=== PATIENT | male | born 1940 | race Hispanic/Latino ===

== ENCOUNTER 2020-09-28 15:16 | Emergency (ER) | payer MEDICARE ==
--- NOTE | 2020-09-28 17:01 | Emergency Department Report ---
ED General Adult HPI - General Chief complaint: Urogenital-Male Stated complaint: LEAKING CATHETER Time Seen by Provider: 09/28/20 15:41 Source: patient Mode of arrival: Ambulatory Limitations: No Limitations - History of Present Illness Initial comments: 80-year-old male presents to ED due to Adler catheter bag leaking urine. Onset earlier today. Patient is having no issues with draining urine from the bladder. -: This afternoon Severity scale (0 -10): 0 Quality: other (painless) Consistency: constant Improves with: none Worsens with: cold therapy Associated Symptoms: denies other symptoms Treatments Prior to Arrival: none - Related Data Previous Rx's Medication Instructions Recorded Last Taken Type Cyclobenzaprine [Flexeril 10 MG 10 mg PO Q8H PRN #20 tablet 08/15/14 Unknown Rx TAB] HYDROcodone/APAP 5-325 [[place] 1 each PO Q6HR PRN #12 tablet 08/15/14 Unknown Rx 5-325 mg TAB] Ibuprofen [Motrin 600 MG tab] 600 mg PO Q8H PRN #20 tablet 08/15/14 Unknown Rx Allergies Allergy/AdvReac Type Severity Reaction Status Date / Time No Known Allergies Allergy Verified 08/15/14 14:07 ED Review of Systems ROS: Stated complaint: LEAKING CATHETER Other details as noted in HPI Comment: All other systems reviewed and negative Gastrointestinal: denies: abdominal pain Genitourinary: as per HPI ED Past Medical Hx - Past Medical History Previous Medical History?: Yes Additional medical history: Dysuria - Surgical History Hx Appendectomy: Yes Additional Surgical History: Lump removed from head and under arm - Social History Smoking Status: Never Smoker Substance Use Type: None - Medications Home Medications: Home Medications Medication Instructions Recorded Confirmed Last Taken Type Cyclobenzaprine [Flexeril 10 MG 10 mg PO Q8H PRN #20 tablet 08/15/14 Unknown Rx TAB] HYDROcodone/APAP 5-325 [[place] 1 each PO Q6HR PRN #12 tablet 08/15/14 Unknown Rx 5-325 mg TAB] Ibuprofen [Motrin 600 MG tab] 600 mg PO Q8H PRN #20 tablet 08/15/14 Unknown Rx ED Physical Exam - General Limitations: No Limitations General appearance: alert, in no apparent distress - Head Head exam: Present: atraumatic, normocephalic - Eye Eye exam: Present: normal appearance, EOMI - ENT ENT exam: Present: mucous membranes moist - Neck Neck exam: Present: normal inspection - Respiratory Respiratory exam: Present: normal lung sounds bilaterally. Absent: respiratory distress - Cardiovascular Cardiovascular Exam: Present: normal rhythm, tachycardia - GI/Abdominal GI/Abdominal exam: Present: soft, other (Adler catheter in place). Absent: distended, tenderness - Extremities Exam Extremities exam: Present: normal inspection - Neurological Exam Neurological exam: Present: alert, oriented X3 - Psychiatric Psychiatric exam: Present: normal affect, normal mood - Skin Skin exam: Present: warm, dry, intact, normal color ED Course Vital Signs 09/28/20 09/28/20 09/28/20 15:31 16:01 16:55 Temperature 97.8 F Pulse Rate 120 H 105 H 92 H Respiratory 95 H 17 16 Rate Blood Pressure 193/123 Blood Pressure 179/105 [Left] O2 Sat by Pulse 95 95 Oximetry 09/28/20 09/28/20 17:00 17:19 Temperature Pulse Rate 94 H 91 H Respiratory 19 15 Rate Blood Pressure Blood Pressure 162/102 [Left] O2 Sat by Pulse Oximetry ED Medical Decision Making - EKG Data -: EKG Interpreted by Sc EKG shows normal: sinus rhythm, ST-T waves Rate: tachycardia (rate 104) - EKG Data Interpretation: no acute changes, other (LBBB) - Medical Decision Making BP and HR elevated upon arrival, however, pt states he has "white coat syndrome." Also states he has not taken his BP meds today. EKG was obtained secondary to his tachycardia. Shows LBBB, no acute changes. Pt has no cardiac complaints. BP and HR have both improved. Adler catheter bag changed out. Pt will be discharged at this time. - Differential Diagnosis Adler catheter problem Critical care attestation.: If time is entered above; I have spent that time in minutes in the direct care of this critically ill patient, excluding procedure time. ED Disposition Clinical Impression: Adler catheter problem Disposition: TO HOME OR SELFCARE Is pt being admited?: No Condition: Stable Time of Disposition: 16:58
[2020-09-28 17:24] VITALS: BP 162/102
== END 2020-09-28 17:20 | disposition home or self-care (01) ==
LOC: ED 15:16
DX: T83.098A Other mechanical complication of other urinary catheter, initial encounter (principal); Z98.890 Other specified postprocedural states; Z79.1 Long term (current) use of non-steroidal anti-inflammatories (NSAID); Z79.899 Other long term (current) drug therapy; Y92.89 Other specified places as the place of occurrence of the external cause
CPT/HCPCS: 93005

== ENCOUNTER 2020-12-28 00:47 | Emergency (ER) | payer MEDICARE ==
[2020-12-28] MEDS ORDERED: SODIUM CHLORIDE 0.9% IRR 500 ML BOTTLE IR ONE (02:12)
--- NOTE | 2020-12-28 02:13 | Emergency Department Report ---
ED General Adult HPI - General Chief complaint: Urogenital-Male Stated complaint: I feel like I have to pee PUI?: No Time Seen by Provider: 12/28/20 01:13 Source: patient, EMS ( EMS documentation not available at time of chart dictation ), RN notes reviewed, old records reviewed Mode of arrival: Ambulatory Limitations: No Limitations - History of Present Illness Initial comments: The patient was evaluated in the emergency department for symptoms described in the history of present illness. He/she was evaluated in the context of the global COVID-19 pandemic, which necessitated consideration that the patient might be at risk for infection with the virus that causes COVID-19. Institutional protocols and algorithms that pertain to the evaluation of patients at risk for COVID-19 are in a state of rapid change based on information released by regulatory bodies including the CDC and federal and state organizations. These policies and algorithms were followed during the patient's care in the emergency department. Please note that these policies, procedures and recommendations changed on a rapid basis. Urology: Dr. Ganesh Witt; [facility]. The patient is a pleasant 80-year-old gentleman with an indwelling Adler catheter, who presents to the ER today with a complaint of urinary distention, and decreased urine output from his indwelling 20 [place] Adler catheter. He was feeling fine up until 2 hours prior to arrival to this emergency room. He endorses that he has been in his usual state of health. He reports that he had a Adler catheter recently placed at [facility] a few days ago. He denies new medications. He denies all other symptomatology. After irrigation of his Adler catheter by nursing team, 800 cc of clear yellow urine were returned, and patient endorsed complete resolution of symptoms. He states that he is now back to his baseline, and denies complaints, and would like to be discharged. -: Sudden, hour(s) Severity scale (0 -10): 3 Consistency: now resolved Improves with: other (Nursing irrigation) Worsens with: none Associated Symptoms: denies other symptoms - Related Data Previous Rx's Medication Instructions Recorded Last Taken Type Cyclobenzaprine [Flexeril 10 MG 10 mg PO Q8H PRN #20 tablet 08/15/14 Unknown Rx TAB] HYDROcodone/APAP 5-325 [[place] 1 each PO Q6HR PRN #12 tablet 08/15/14 Unknown Rx 5-325 mg TAB] Ibuprofen [Motrin 600 MG tab] 600 mg PO Q8H PRN #20 tablet 08/15/14 Unknown Rx Allergies Allergy/AdvReac Type Severity Reaction Status Date / Time No Known Allergies Allergy Verified 08/15/14 14:07 ED Review of Systems ROS: Stated complaint: DYSURIA Other details as noted in HPI Constitutional: denies: fever Cardiovascular: denies: chest pain Gastrointestinal: abdominal pain Genitourinary: other (Urinary retention). denies: urgency, dysuria, frequency, hematuria, testicular pain, testicular mass Neurological: denies: weakness ED Past Medical Hx - Past Medical History Previous Medical History?: Yes Hx Hypertension: Yes Additional medical history: Dysuria - Surgical History Hx Appendectomy: Yes Additional Surgical History: Lump removed from head and under arm. Prostate resume November 20, 2020 - Social History Smoking Status: Former Smoker - Medications Home Medications: Home Medications Medication Instructions Recorded Confirmed Last Taken Type Cyclobenzaprine [Flexeril 10 MG 10 mg PO Q8H PRN #20 tablet 08/15/14 Unknown Rx TAB] HYDROcodone/APAP 5-325 [[place] 1 each PO Q6HR PRN #12 tablet 08/15/14 Unknown Rx 5-325 mg TAB] Ibuprofen [Motrin 600 MG tab] 600 mg PO Q8H PRN #20 tablet 08/15/14 Unknown Rx ED Physical Exam - General Limitations: No Limitations General appearance: alert, anxious, in distress - Head Head exam: Present: atraumatic, normocephalic - Eye Eye exam: Present: normal appearance, EOMI - ENT ENT exam: Present: normal exam, normal orophraynx, mucous membranes moist, normal external ear exam - Neck Neck exam: Present: normal inspection, full ROM. Absent: tenderness, meningismus - Respiratory Respiratory exam: Present: normal lung sounds bilaterally. Absent: respiratory distress, wheezes, rales, rhonchi, stridor, decreased breath sounds, prolonged expiratory - Cardiovascular Cardiovascular Exam: Present: regular rate, normal rhythm, normal heart sounds. Absent: bradycardia, tachycardia, irregular rhythm, systolic murmur, diastolic murmur, rubs, gallop - GI/Abdominal GI/Abdominal exam: Present: soft, distended (Distended bladder). Absent: tenderness, guarding, rebound, rigid, pulsatile mass - Rectal Rectal exam: Present: normal inspection - exam: Present: normal inspection, other (Adler catheter in place. Draining clear yellow urine. Chaperoned by nurse Hamida Zepeda). Absent: testicular tenderness - Extremities Exam Extremities exam: Present: normal inspection, full ROM, other (2+ pulses noted in the bilateral upper and lower extremities. There is no palpable cord. negative Homans sign. Muscular compartments are soft. The pelvis is stable.). Absent: pedal edema, calf tenderness - Back Exam Back exam: Present: normal inspection, full ROM. Absent: tenderness, CVA tenderness (R), CVA tenderness (L), paraspinal tenderness, vertebral tenderness - Neurological Exam Neurological exam: Present: alert, oriented X3, normal gait, other (No facial droop. Tongue midline. Extraocular movements intact bilaterally. Facial sensation intact to light touch in V1, V2, V3 distribution bilaterally. 5 and a 5 strength in 4 extremities. Sensation intact to light touch in 4 extremities.). Absent: motor sensory deficit - Psychiatric Psychiatric exam: Present: normal affect, normal mood - Skin Skin exam: Present: warm, dry, intact, normal color. Absent: rash ED Course Vital Signs 12/28/20 12/28/20 12/28/20 01:05 01:30 01:45 Temperature 98.3 F Pulse Rate 103 H 91 H 79 Respiratory 20 18 27 H Rate Blood Pressure 152/82 154/108 O2 Sat by Pulse 97 95 96 Oximetry 12/28/20 02:01 Temperature Pulse Rate 93 H Respiratory 18 Rate Blood Pressure 154/89 O2 Sat by Pulse 96 Oximetry ED Medical Decision Making - Lab Data Vital Signs 12/28/20 12/28/20 12/28/20 01:05 01:30 01:45 Temperature 98.3 F Pulse Rate 103 H 91 H 79 Respiratory 20 18 27 H Rate Blood Pressure 152/82 154/108 O2 Sat by Pulse 97 95 96 Oximetry 12/28/20 02:01 Temperature Pulse Rate 93 H Respiratory 18 Rate Blood Pressure 154/89 O2 Sat by Pulse 96 Oximetry - Medical Decision Making Differential diagnosis, including but not limited to: Encounter for Adler catheter malfunction, Adler catheter blockage Assessment and plan: 80-year-old gentleman, with indwelling three-way Adler catheter, 20 [place], who presents with poor drainage from catheter, now resolved, after irrigation. Adler catheter draining well, clear yellow urine, patient endorses that he feels like he is back to his baseline. He has follow- up with his urologist in a few weeks. He endorses readiness for discharge. Return precautions are reviewed. Critical care attestation.: If time is entered above; I have spent that time in minutes in the direct care of this critically ill patient, excluding procedure time. ED Disposition Clinical Impression: Adler catheter in place, History of urinary retention Disposition: TO HOME OR SELFCARE Is pt being admited?: No Does the pt Need Aspirin: No Condition: Good Instructions: Acute Urinary Retention, Male, Indwelling Urinary Catheter Care, Adult Additional Instructions: Please continue current outpatient medications. Please follow-up with your outpatient neurologist or primary care doctor for Adler catheter care and maintenance within the next 5 to 7 days. Please return to the emergency room right away with new pain, worsened pain, migration of pain, projectile vomiting, change in mental status, confusion, inability to tolerate liquid feeds, recurrent urinary obstruction, or any new, worsened or different symptoms not present on the initial ER evaluation Referrals: MARY KAY WITT MD [Staff Physician] - 3-5 Days [facility] [Provider Group] - 3-5 Days
[2020-12-28 03:44] VITALS: BP 145/72
== END 2020-12-28 03:42 | disposition home or self-care (01) ==
LOC: ED 00:47
DX: T83.098A Other mechanical complication of other urinary catheter, initial encounter (principal); I10 Essential (primary) hypertension; Z90.49 Acquired absence of other specified parts of digestive tract; Z87.891 Personal history of nicotine dependence; Z98.890 Other specified postprocedural states; Z79.899 Other long term (current) drug therapy; Y84.6 Urinary catheterization as the cause of abnormal reaction of the patient, or of later complication, without mention of misadventure at the time of the procedure; Y92.89 Other specified places as the place of occurrence of the external cause
CPT/HCPCS: 99283

== ENCOUNTER 2020-12-28 06:32 | Emergency (ER) | payer MEDICARE ==
--- NOTE | 2020-12-28 08:37 | Emergency Department Report ---
ED Male HPI - General Chief complaint: Urogenital-Male Stated complaint: INCOMPLETE FLUSH/URINARY RETENTION Time Seen by Provider: 12/28/20 08:03 Source: patient Mode of arrival: Ambulatory Limitations: No Limitations - History of Present Illness Initial comments: Patient is 80 years old male with history of prostate cancer and frequent urinary retention. Patient is on Adler catheter. Patient presented to the ER for urinary retention. Patient was seen here yesterday and has Adler catheter irrigated and felt better and discharged home. Patient stated that it stopped draining again. Patient denied any nausea or vomiting. No fever or chills. - Related Data Previous Rx's Medication Instructions Recorded Last Taken Type Cyclobenzaprine [Flexeril 10 MG 10 mg PO Q8H PRN #20 tablet 08/15/14 Unknown Rx TAB] HYDROcodone/APAP 5-325 [[place] 1 each PO Q6HR PRN #12 tablet 08/15/14 Unknown Rx 5-325 mg TAB] Ibuprofen [Motrin 600 MG tab] 600 mg PO Q8H PRN #20 tablet 08/15/14 Unknown Rx Allergies Allergy/AdvReac Type Severity Reaction Status Date / Time No Known Allergies Allergy Verified 08/15/14 14:07 ED Review of Systems ROS: Stated complaint: INCOMPLETE FLUSH/URINARY RETENTION Other details as noted in HPI Comment: All other systems reviewed and negative Constitutional: denies: chills, fever Respiratory: denies: cough, shortness of breath, SOB with exertion Cardiovascular: denies: chest pain, palpitations Gastrointestinal: denies: abdominal pain, nausea, vomiting Musculoskeletal: denies: back pain ED Past Medical Hx - Past Medical History Previous Medical History?: Yes Hx Hypertension: Yes Additional medical history: Dysuria - Surgical History Past Surgical History?: Yes Hx Appendectomy: Yes Additional Surgical History: Lump removed from head and under arm. Prostate resume November 20, 2020 - Social History Smoking Status: Former Smoker Substance Use Type: None - Medications Home Medications: Home Medications Medication Instructions Recorded Confirmed Last Taken Type Cyclobenzaprine [Flexeril 10 MG 10 mg PO Q8H PRN #20 tablet 08/15/14 Unknown Rx TAB] HYDROcodone/APAP 5-325 [[place] 1 each PO Q6HR PRN #12 tablet 08/15/14 Unknown Rx 5-325 mg TAB] Ibuprofen [Motrin 600 MG tab] 600 mg PO Q8H PRN #20 tablet 08/15/14 Unknown Rx ED Physical Exam - General Limitations: No Limitations General appearance: alert, in no apparent distress - Head Head exam: Present: atraumatic, normocephalic, normal inspection - Eye Eye exam: Present: normal appearance - Neck Neck exam: Present: normal inspection. Absent: tenderness, meningismus - Respiratory Respiratory exam: Present: normal lung sounds bilaterally - Cardiovascular Cardiovascular Exam: Present: regular rate, normal rhythm, normal heart sounds - GI/Abdominal GI/Abdominal exam: Present: soft, distended. Absent: tenderness, guarding, rebound, rigid, normal bowel sounds - Extremities Exam Extremities exam: Present: normal inspection, full ROM, normal capillary refill. Absent: tenderness - Back Exam Back exam: Present: normal inspection, full ROM. Absent: CVA tenderness (R) - Neurological Exam Neurological exam: Present: alert, oriented X3, CN II-XII intact - Skin Skin exam: Present: warm, intact, normal color ED Course Vital Signs 12/28/20 07:53 Temperature 97.9 F Pulse Rate 85 Respiratory 18 Rate Blood Pressure 205/93 O2 Sat by Pulse 98 Oximetry ED Medical Decision Making - Medical Decision Making Patient is 80 years old male with history of prostate cancer and frequent urinary retention. Patient is on Adler catheter. Patient presented to the ER for urinary retention. Patient was seen here yesterday and has Adler catheter irrigated and felt better and discharged home. Patient stated that it stopped draining again. Patient denied any nausea or vomiting. No fever or chills. Catheter has been replaced. Draining well. Patient stating that he is feeling much better. Patient has an appointment with Dr. Witt in the next 3 days. I advised the patient to keep his appointment and to return to the ER if he develop any new symptoms. Critical care attestation.: If time is entered above; I have spent that time in minutes in the direct care of this critically ill patient, excluding procedure time. ED Disposition Clinical Impression: Acute urinary retention, Malfunction of Adler catheter Disposition: TO HOME OR SELFCARE Is pt being admited?: No Condition: Stable Instructions: Acute Urinary Retention, Male Referrals: MARY KAY WITT MD [Primary Care Provider] - 3-5 Days
[2020-12-28 10:02] VITALS: BP 174/98
== END 2020-12-28 10:02 | disposition home or self-care (01) ==
LOC: ED 06:32
DX: T83.098A Other mechanical complication of other urinary catheter, initial encounter (principal); R33.9 Retention of urine, unspecified; I10 Essential (primary) hypertension; Z90.49 Acquired absence of other specified parts of digestive tract; Z87.891 Personal history of nicotine dependence; Z79.899 Other long term (current) drug therapy; Y84.6 Urinary catheterization as the cause of abnormal reaction of the patient, or of later complication, without mention of misadventure at the time of the procedure; Y92.89 Other specified places as the place of occurrence of the external cause

== ENCOUNTER 2021-01-23 13:32 | Emergency (ER) | payer MEDICARE ==
[2021-01-23 13:48] VITALS: BP 154/69
--- NOTE | 2021-01-23 14:42 | Emergency Department Report ---
<FERN MUIR - Last Filed: 01/23/21 17:22> ED Male HPI - General Chief complaint: Urogenital-Male Stated complaint: UNABLE TO URINE Time Seen by Provider: 01/23/21 14:41 Source: patient Mode of arrival: Ambulatory Limitations: No Limitations - History of Present Illness Initial comments: 80-year-old [place] presents to the emergency room stating he has been unable to urinate since 230 this morning. Patient reports that he has had issues with urinary retention and had to have Adler catheter placed about 7-8 times. Patient reports has a history of prostate cancer and had procedure and since then he has been having trouble with urinary retention. Patient currently follows up with Dr. Witt and next appointment is not until March 02. Patient states he has pelvic distention pelvic pressure. He denies any fever chills no nausea no vomiting. MD Complaint: other (Urinary retention) -: This morning Time: 02:30 Severity scale (0 -10): 7 Quality: aching Consistency: constant Improves with: none Worsens with: none - Related Data Previous Rx's Medication Instructions Recorded Last Taken Type Cyclobenzaprine [Flexeril 10 MG 10 mg PO Q8H PRN #20 tablet 08/15/14 Unknown Rx TAB] HYDROcodone/APAP 5-325 [[place] 1 each PO Q6HR PRN #12 tablet 08/15/14 Unknown Rx 5-325 mg TAB] Ibuprofen [Motrin 600 MG tab] 600 mg PO Q8H PRN #20 tablet 08/15/14 Unknown Rx Ciprofloxacin HCl 500 mg PO BID #10 tablet 01/23/21 Unknown Rx Allergies Allergy/AdvReac Type Severity Reaction Status Date / Time No Known Allergies Allergy Verified 08/15/14 14:07 ED Review of Systems Comment: All other systems reviewed and negative ED Past Medical Hx - Past Medical History Previous Medical History?: Yes Hx Hypertension: Yes Hx Renal Disease: (Unable to urinate 3 different times) Additional medical history: Dysuria - Surgical History Past Surgical History?: Yes Hx Appendectomy: Yes Additional Surgical History: Lump removed from head and under arm. Prostate resume November 20, 2020 - Social History Smoking Status: Former Smoker Substance Use Type: None - Medications Home Medications: Home Medications Medication Instructions Recorded Confirmed Last Taken Type Cyclobenzaprine [Flexeril 10 MG 10 mg PO Q8H PRN #20 tablet 08/15/14 Unknown Rx TAB] HYDROcodone/APAP 5-325 [[place] 1 each PO Q6HR PRN #12 tablet 08/15/14 Unknown Rx 5-325 mg TAB] Ibuprofen [Motrin 600 MG tab] 600 mg PO Q8H PRN #20 tablet 08/15/14 Unknown Rx Ciprofloxacin HCl 500 mg PO BID #10 tablet 01/23/21 Unknown Rx ED Physical Exam - General Limitations: No Limitations General appearance: alert, in no apparent distress - Head Head exam: Present: atraumatic, normocephalic - Eye Eye exam: Present: normal appearance - ENT ENT exam: Present: normal exam, normal external ear exam - Neck Neck exam: Present: normal inspection, full ROM - Respiratory Respiratory exam: Present: normal lung sounds bilaterally. Absent: accessory muscle use - Cardiovascular Cardiovascular Exam: Present: regular rate - GI/Abdominal GI/Abdominal exam: Present: soft, distended, tenderness, normal bowel sounds. Absent: guarding - Extremities Exam Extremities exam: Present: normal inspection - Back Exam Back exam: Present: normal inspection - Neurological Exam Neurological exam: Present: alert, oriented X3 - Psychiatric Psychiatric exam: Present: normal affect, normal mood - Skin Skin exam: Present: warm, dry, intact, normal color. Absent: rash ED Medical Decision Making - Medical Decision Making 80-year-old [place] presents to the emergency room stating he has been unable to urinate since 230 this morning. Patient reports that he has had issues with urinary retention and had to have Adler catheter placed about 7-8 times. Patient reports has a history of prostate cancer and had procedure and since then he has been having trouble with urinary retention. Patient currently follows up with Dr. Witt and next appointment is not until March 02. Patient states he has pelvic distention pelvic pressure. He denies any fever chills no nausea no vomiting. Patient had a Adler catheter placed by ER attending Dr. Camila Mendes. Patient appears to have a urinary tract infection will treat with Cipro 500 mg twice daily for 5 days. Patient is instructed to follow-up with Dr. Witt earlier than March 02. ED Disposition Clinical Impression: Urinary retention, BPH (benign prostatic hyperplasia) UTI (urinary tract infection) Qualifiers: Urinary tract infection type: site unspecified Hematuria presence: without hematuria Qualified Code(s): N39.0 - Urinary tract infection, site not specified Disposition: DC-01 TO HOME OR SELFCARE Is pt being admited?: No Does the pt Need Aspirin: No Condition: Stable Instructions: Acute Urinary Retention, Male, [id number] Additional Instructions: Please follow-up with Dr. Witt sooner than March 02. Complete antibiotics. Increase your fluid intake. Prescriptions: Ciprofloxacin HCl 500 mg PO BID #10 tablet Referrals: MARY KAY WITT MD [Staff Physician] - 3-5 Days <CAMILA MENDES - Last Filed: 01/23/21 17:37> ED Review of Systems ROS: Stated complaint: UNABLE TO URINE Other details as noted in HPI ED Course Vital Signs 01/23/21 13:44 Temperature 98.2 F Pulse Rate 87 Respiratory 18 Rate Blood Pressure 154/69 [Right] O2 Sat by Pulse 96 Oximetry ED Medical Decision Making - Medical Decision Making I evaluated patient. Patient has acute urinary retention which is recurrent. Charge nurse asked me to attempt Adler catheter placement. Patient recently had Adler catheter was removed by Dr. Witt's nurse on Tuesday in the office. He had normal urine flow between Tuesday and today. Patient has BPH. Patient last urinated 2:30 AM this morning. He has bladder discomfort. Severe pain discomfort. During my exam patient denied history of prostate cancer. Procedure note Adler catheter placement Patient gave verbal consent for procedure Indication acute urinary retention Under sterile conditions Betadine preparation, I used lidocaine jelly with Urojet apparatus to provide local anesthesia. I inserted 18 Sin[place] coud tipped catheter. Immediate expression of urine in collection bag. No complications. Patient had immediate relief. Collection bag immediately filled with 700 mL of urine Critical care attestation.: If time is entered above; I have spent that time in minutes in the direct care of this critically ill patient, excluding procedure time. ED Disposition Is pt being admited?: No Does the pt Need Aspirin: No
[2021-01-23 16:46] LABS: Bacteria,Urine 3+ /HPF (Negative); Bilirubin,Urine NEG (Negative); Blood,Urine MOD (Negative); Color,Urine Yellow (Yellow); Mucus,Urine FEW /HPF; Urobilinogen,Urine < 2.0 mg/dL (<2.0)
[2021-01-23 16:47] LABS: WBC,Urine > 182.0 /HPF (0.0-6.0)
[2021-01-23] MEDS ORDERED: LIDOCAINE 2% UROJECT 10 ML JELLY UR ONE (17:00)
[2021-01-24] MEDS ORDERED: LIDOCAINE 2% UROJECT 10 ML JELLY UR ONE (01:32)
== END 2021-01-23 18:05 | disposition home or self-care (01) ==
LOC: ED 13:32
DX: N40.0 Benign prostatic hyperplasia without lower urinary tract symptoms (principal); N39.0 Urinary tract infection, site not specified; R33.9 Retention of urine, unspecified; I10 Essential (primary) hypertension; Z90.49 Acquired absence of other specified parts of digestive tract; Z98.890 Other specified postprocedural states; Z87.891 Personal history of nicotine dependence; Z79.1 Long term (current) use of non-steroidal anti-inflammatories (NSAID); Z79.899 Other long term (current) drug therapy
CPT/HCPCS: 51702; 81001

== ENCOUNTER 2021-01-24 01:16 | Emergency (ER) | payer MEDICARE ==
[~2021-01-24 01:16] MED LIST: LIDOCAINE 2% UROJECT 10 ML JELLY ONE
[2021-01-24] MEDS ORDERED: WATER FOR INJ Sterile (PF) 10 ML ONE (01:48)
[2021-01-24] MEDS ORDERED: SODIUM CHLORIDE 0.9% IRRIG SOLN 2000 ML IR SCH (02:00)
--- NOTE | 2021-01-24 02:31 | Emergency Department Report ---
ED Male HPI - General Chief complaint: Tube Replacement Stated complaint: ABDOMINAL PAIN Time Seen by Provider: 01/24/21 01:22 Source: patient Mode of arrival: Ambulatory Limitations: No Limitations - History of Present Illness Initial comments: Patient is a 80-year-old male with a past medical history of prostate cancer and multiple episodes of urine retention. Patient had a Adler catheter taken out earlier this week. Was then retention and had a catheter placed earlier today. Patient states after he left he feels as though the catheter stopped working. He is now has some suprapubic discomfort. Denies nausea vomiting diarrhea. - Related Data Allergies Allergy/AdvReac Type Severity Reaction Status Date / Time No Known Allergies Allergy Verified 01/24/21 01:42 ED Review of Systems ROS: Stated complaint: ABDOMINAL PAIN Other details as noted in HPI Comment: All other systems reviewed and negative ED Past Medical Hx - Past Medical History Previous Medical History?: No Hx Hypertension: No Hx CVA: No Hx Heart Attack/AMI: No Hx Congestive Heart Failure: No Hx Diabetes: No Hx Deep Vein Thrombosis: No Hx Pulmonary Embolism: No Hx GERD: No Hx Liver Disease: No Hx Renal Disease: No Hx of Cancer: No Hx Sickle Cell Disease: No Hx Arthritis: No Hx Headaches / Migraines: No Hx Seizures: No Hx Kidney Stones: No Hx Psychiatric Treatment: No Hx Asthma: No Hx COPD: No Hx Tuberculosis: No Hx Dementia: No Hx HIV: No Additional medical history: enlarged prostate - Surgical History Past Surgical History?: Yes ED Physical Exam - General Limitations: No Limitations General appearance: alert, in no apparent distress - Head Head exam: Present: atraumatic, normocephalic - Eye Eye exam: Present: normal appearance - ENT ENT exam: Present: mucous membranes moist - Neck Neck exam: Present: normal inspection - Respiratory Respiratory exam: Present: normal lung sounds bilaterally. Absent: respiratory distress - Cardiovascular Cardiovascular Exam: Present: regular rate, normal rhythm. Absent: systolic murmur, diastolic murmur, rubs, gallop - GI/Abdominal GI/Abdominal exam: Present: soft, distended, tenderness (suprpubic), normal bowel sounds. Absent: guarding, rebound, rigid - Rectal Rectal exam: Present: deferred - Extremities Exam Extremities exam: Present: normal inspection - Back Exam Back exam: Present: normal inspection - Neurological Exam Neurological exam: Present: alert, oriented X3 - Psychiatric Psychiatric exam: Present: normal affect, normal mood - Skin Skin exam: Present: warm, dry, intact, normal color. Absent: rash ED Course Vital Signs 01/24/21 01:31 Temperature 97 F L Pulse Rate 68 Respiratory 18 Rate Blood Pressure 159/85 [Right] O2 Sat by Pulse 98 Oximetry ED Medical Decision Making - Medical Decision Making I anticipate is seeing some clots in the patient is bladder causing the obstruction. Placed a 22 [place] three-way Adler. No clots were seen however the patient was able to have his bladder decompressed with a larger Adler catheter. Arrival to the additional port and will send the patient home with a three-way catheter. Patient had good relief of symptoms and has had approximately a liter of urine was drained. Critical care attestation.: If time is entered above; I have spent that time in minutes in the direct care of this critically ill patient, excluding procedure time. ED Disposition Clinical Impression: Urine retention, Adler catheter problem Disposition: DC-01 TO HOME OR SELFCARE Is pt being admited?: No Does the pt Need Aspirin: No Condition: Stable Instructions: Acute Urinary Retention, Male, [id number] Referrals: MARY KAY WALTERS MD [Staff Physician] - [facility] Time of Disposition: 02:30
[2021-01-24 03:22] VITALS: BP 141/79
== END 2021-01-24 03:22 | disposition home or self-care (01) ==
LOC: ED 01:16 → MERGE 01:16 → ED 03:22
DX: T83.9XXA Unspecified complication of genitourinary prosthetic device, implant and graft, initial encounter (principal); R33.9 Retention of urine, unspecified; Y92.89 Other specified places as the place of occurrence of the external cause
CPT/HCPCS: 51702; 99283; A4217

== ENCOUNTER 2021-04-28 06:34 | Emergency (ER) | payer MEDICARE ==
--- NOTE | 2021-04-28 07:03 | Emergency Department Report ---
HPI - General Chief Complaint: Urogenital-Male Time Seen by Provider: 04/28/21 06:58 - HPI HPI: 80-year-old male presents to the emergency department with some suprapubic pain and urinary retention since waking up this morning around 5 AM. The patient has a history of hypertension, BPH and urinary retention. A Adler catheter was placed in the office of his urologist, Dr. Witt, 2 weeks ago secondary to urinary retention. Patient says that the Adler catheter is only draining a little and "it looks bloody and I might have an infection." He denies any fever, nausea, vomiting, back pain, chest pain, shortness of breath. The patient does present with elevated blood pressure but says he took his antihypertensive medication this morning. ED Past Medical Hx - Past Medical History Hx Hypertension: Yes Hx CVA: No Hx Heart Attack/AMI: No Hx Congestive Heart Failure: No Hx Diabetes: No Hx Deep Vein Thrombosis: No Hx Pulmonary Embolism: No Hx GERD: No Hx Liver Disease: No Hx Renal Disease: (Unable to urinate 3 different times) Hx Sickle Cell Disease: No Hx Arthritis: No Hx Headaches / Migraines: No Hx Seizures: No Hx Kidney Stones: No Hx Psychiatric Treatment: No Hx Asthma: No Hx COPD: No Hx Tuberculosis: No Hx Dementia: No Hx HIV: No Additional medical history: Dysuria - Surgical History Hx Appendectomy: Yes Additional Surgical History: Lump removed from head and under arm. Prostate resume November 20, 2020 - Social History Smoking Status: Former Smoker Substance Use Type: None - Medications Home Medications: Home Medications Medication Instructions Recorded Confirmed Last Taken Type Cyclobenzaprine [Flexeril 10 MG 10 mg PO Q8H PRN #20 tablet 08/15/14 Unknown Rx TAB] HYDROcodone/APAP 5-325 [[place] 1 each PO Q6HR PRN #12 tablet 08/15/14 Unknown Rx 5-325 mg TAB] Ibuprofen [Motrin 600 MG tab] 600 mg PO Q8H PRN #20 tablet 08/15/14 Unknown Rx Ciprofloxacin HCl 500 mg PO BID #10 tablet 01/23/21 Unknown Rx ED Review of Systems ROS: Stated complaint: RETENTION Other details as noted in HPI Comment: All other systems reviewed and negative Constitutional: denies: chills, fever Eyes: denies: eye pain, vision change ENT: denies: ear pain, throat pain Respiratory: denies: cough, shortness of breath Cardiovascular: denies: chest pain, palpitations Gastrointestinal: abdominal pain. denies: vomiting Genitourinary: hematuria. denies: discharge Musculoskeletal: denies: back pain, arthralgia Skin: denies: rash, lesions Neurological: denies: headache, weakness Physical Exam - Physical Exam Vital Signs: Vital Signs 04/28/21 06:52 Temperature 97.7 F Pulse Rate 109 H Respiratory 18 Rate Blood Pressure 210/111 [Left] O2 Sat by Pulse 96 Oximetry Physical Exam: GENERAL: The patient is well-developed well-nourished. HENT: Normocephalic. Atraumatic. Patient has moist mucous membranes. EYES: Extraocular motions are intact. NECK: Supple. Trachea is midline. CHEST/LUNGS: Clear to auscultation. There is no respiratory distress noted. HEART/CARDIOVASCULAR: Regular. There is no tachycardia. There is no murmur. ABDOMEN: Abdomen is soft. There is some mild lower abdominal/suprapubic tenderness to palpation. No guarding.. Patient has normal bowel sounds. SKIN: Skin is warm and dry. NEURO: The patient is awake, alert, and oriented. The patient is cooperative. Normal speech. MUSCULOSKELETAL: There is no tenderness or deformity. There is no limitation range of motion. ED Course Vital Signs 04/28/21 06:52 Temperature 97.7 F Pulse Rate 109 H Respiratory 18 Rate Blood Pressure 210/111 [Left] O2 Sat by Pulse 96 Oximetry - Reevaluation(s) Reevaluation #1: 04/28/21 08:09 Patient says that his Adler catheter suddenly began draining and he was able to empty his bladder. He did empty the contents of the leg bag before we were able to receive a urine sample for urinalysis. However, the patient says that he is feeling greatly improved and says that he is following up this morning with his urologist. ED Medical Decision Making - Medical Decision Making This patient presents to the emergency department with lower ab dominal/suprapubic discomfort, urinary retention, and a nonfunctioning Adler catheter. He has a history of urinary retention secondary to BPH. While waiting for the Adler catheter to be flushed and reassessed, all of a sudden the Adler catheter began draining and the patient was able to void his bladder. He immediately began feeling greatly improved. The patient emptied his Adler catheter bag and therefore we did not have a urine sample to test. He says that he is following up today with his urologist, so the patient can have a urinalysis done through them. Initially the patient presents with extremely elevated blood pressure, most likely secondary to his discomfort from the urinary retention. However, came down to a slightly more reasonable level after the patient was able to void. He does have a history of hypertension and was instructed to stay away from foods that are high in salt and caffeinated products, and keep a blood pressure log. Otherwise this is asymptomatic hyper tension. Critical Care Time: No Critical care attestation.: If time is entered above; I have spent that time in minutes in the direct care of this critically ill patient, excluding procedure time. ED Disposition Clinical Impression: Urinary retention Hypertension Qualifiers: Hypertension type: primary hypertension Qualified Code(s): I10 - Essential (primary) hypertension Hematuria Qualifiers: Hematuria type: unspecified type Qualified Code(s): R31.9 - Hematuria, unspecified Disposition: 01 HOME / SELF CARE / HOMELESS Is pt being admited?: No Condition: Stable Instructions: Indwelling Urinary Catheter Care, Adult, Acute Urinary Retention, Male, Managing Your Hypertension, Hematuria, Adult, Hypertension (ED) Additional Instructions: Please follow-up with your urologist as previously planned. Take all medications as prescribed. Try to stay away from foods that are high in salt and caffeinated products. Keep a blood pressure log. Return to the emergency department with any worsening of your symptoms, new or c oncerning symptoms not addressed during this current emergency department visit, or with any acute distress. Referrals: MARY KAY WITT MD [Staff Physician] - [facility] Time of Disposition: 08:11
[2021-04-28 08:16] VITALS: BP 185/91
== END 2021-04-28 08:23 | disposition home or self-care (01) ==
LOC: ED 06:34
DX: R33.9 Retention of urine, unspecified (principal); I10 Essential (primary) hypertension; R31.9 Hematuria, unspecified; Z87.891 Personal history of nicotine dependence
CPT/HCPCS: 99281

== ENCOUNTER 2021-05-24 21:01 | Emergency (ER) | payer MEDICARE | END 2021-05-24 21:11 | disposition left against medical advice (07) | LOC: ED 21:01 | DX: Z46.6 Encounter for fitting and adjustment of urinary device (principal); Z53.21 Procedure and treatment not carried out due to patient leaving prior to being seen by health care provider ==

== ENCOUNTER 2021-05-25 01:35 | Emergency (ER) | payer MEDICARE ==
--- NOTE | 2021-05-25 02:31 | Emergency Department Report ---
ED Male HPI - General Chief complaint: Urogenital-Male Stated complaint: CATHETER PROBLEMS Time Seen by Provider: 05/25/21 02:02 Source: patient Mode of arrival: Ambulatory Limitations: No Limitations - History of Present Illness Initial comments: 80-year-old male with a past medical history of BPH and recurrent urinary retention presents to the hospital complaining of urinary retention and suprapubic abdominal pain for the past 2 hours. Patient was here earlier due to decreased Adler output. When he went home the catheter came out and the balloon was deflated. Pain is moderate to severe in intensity, worse movement and palpation. The patient elevated secondary pain as per patient. Patient states she was scheduled for laser surgery of his prostate on May 20 but it was canceled due to insurance issues. He is currently trying to reschedule procedure. He denies history of kidney problems or recent fever Coud catheter the bedside size of catheter not clear because marking are no longer visible Urologist: Dr. Witt - Related Data Home Medications Medication Instructions Recorded Confirmed Last Taken Aspirin [[place]] 81 mg PO DAILY 05/11/21 05/11/21 Unknown Hydralazine HCl 50 mg PO BID 05/11/21 05/11/21 Unknown Previous Rx's Medication Instructions Recorded Last Taken Type cefUROXime [Ceftin] 500 mg PO Q12H 7 Days tablet 05/25/21 Unknown Rx Allergies Allergy/AdvReac Type Severity Reaction Status Date / Time No Known Allergies Allergy Verified 04/28/21 06:51 ED Review of Systems ROS: Stated complaint: CATHETER PROBLEMS Other details as noted in HPI Comment: All other systems reviewed and negative ED Past Medical Hx - Past Medical History Hx Hypertension: Yes (X 2 YRS) Hx CVA: No Hx Heart Attack/AMI: No Hx Congestive Heart Failure: No Hx Diabetes: No Hx Deep Vein Thrombosis: No Hx Pulmonary Embolism: No Hx GERD: No Hx Liver Disease: No Hx Renal Disease: (Unable to urinate 3 different times) Hx Sickle Cell Disease: No Hx Arthritis: No Hx Headaches / Migraines: No Hx Seizures: No Hx Kidney Stones: No Hx Psychiatric Treatment: No Hx Asthma: No Hx COPD: No Hx Tuberculosis: No Hx Dementia: No Hx HIV: No Additional medical history: Dysuria - Surgical History Hx Appendectomy: Yes Additional Surgical History: Lump removed from head and under arm. Prostate resume November 20, 2020 - Social History Smoking Status: Former Smoker - Medications Home Medications: Home Medications Medication Instructions Recorded Confirmed Last Taken Type Aspirin [[place]] 81 mg PO DAILY 05/11/21 05/11/21 Unknown History Hydralazine HCl 50 mg PO BID 05/11/21 05/11/21 Unknown History cefUROXime [Ceftin] 500 mg PO Q12H 7 Days tablet 05/25/21 Unknown Rx ED Physical Exam - General Limitations: No Limitations - Other Other exam information: General: No acute distress Head: Atraumatic Eyes: normal appearance ENT: Moist mucous membranes Neck: Normal appearance, no midline tenderness Chest: Clear to auscultation bilaterally CV: Regular rate and rhythm Abdomen: Soft, normal bowel sounds, suprapubic tenderness and distal, nondistended, no rebound or guarding Back: Normal inspection Extremity: Normal inspection, full range of motion Neuro: Alert O x 3, no facial asymmetry, speech clear, no gross motor sensory deficit Psych: Appropriate behavior Skin: No rash ED Course Vital Signs 05/25/21 05/25/21 02:02 03:12 Temperature 98.2 F Pulse Rate 89 67 Respiratory 22 17 Rate Blood Pressure 213/113 176/95 [Left] O2 Sat by Pulse 98 97 Oximetry - Reevaluation(s) Reevaluation #1: 05/25/21 03:05 Urine output 800. 18 [place] coud catheter placed by RN without difficulty ED Medical Decision Making - Medical Decision Making 80-year-old male presents to the hospital with urine retention after Adler catheter placement. 18 [place] coud catheter placed by RN with 800 mL of urine output and improvement in pain. Repeat vital signs show improvement in blood pressure after relief of obstruction. UA positive for infection. Initial dose of cefuroxime provided in the ED prior to discharge. Antibiotics will be prescribed and outpatient urology follow-up encouraged Critical Care Time: No Critical care attestation.: If time is entered above; I have spent that time in minutes in the direct care of this critically ill patient, excluding procedure time. ED Disposition Clinical Impression: Acute retention of urine, UTI (urinary tract infection), BPH (benign prostatic hyperplasia), Dislodged Adler catheter Disposition: HOME / SELF CARE / HOMELESS Is pt being admited?: No Does the pt Need Aspirin: No Condition: Stable Instructions: Benign Prostatic Hyperplasia, Urinary Tract Infection, Adult, [id number], Acute Urinary Retention, Male, Indwelling Urinary Catheter Care, Adult, [id number] Additional Instructions: Take the medication as prescribed. Follow-up with your doctor or doctor/clinic provided. Return if symptoms worsen as indicated by your discharge ins tructions. Prescriptions: cefUROXime [Ceftin] 500 mg PO Q12H 7 Days tablet Referrals: MARY KAY WITT MD [Staff Physician] - 3-5 Days Time of Disposition: 03:23
[2021-05-25 03:08] LABS: Bilirubin,Urine NEG (Negative); Blood,Urine LG (Negative); Color,Urine Yellow (Yellow); Mucus,Urine FEW /HPF; Urobilinogen,Urine < 2.0 mg/dL (<2.0)
[2021-05-25 03:13] VITALS: BP 176/95
== END 2021-05-25 03:50 | disposition home or self-care (01) ==
LOC: ED 01:35
DX: N40.1 Benign prostatic hyperplasia with lower urinary tract symptoms (principal); N13.8 Other obstructive and reflux uropathy; R33.9 Retention of urine, unspecified; I10 Essential (primary) hypertension; Z90.49 Acquired absence of other specified parts of digestive tract; Z87.891 Personal history of nicotine dependence; Z79.899 Other long term (current) drug therapy
CPT/HCPCS: 51702; 81001; 87076; 87086; 87186; 99283